=== PATIENT | female | born 1950 | race Hispanic/Latino ===

== ENCOUNTER → 2021-01-26 | Day surgery (SDC) | payer MEDICARE ==
[2021-01-24 15:31] LABS: BASOPHILS # (AUTO) 0.1 (0.0-0.1); BASOPHILS % 0.8 % (0.0-1.0); EOSINOPHILS # (AUTO) 0.1 (0.0-0.4); EOSINOPHILS % 0.9 % (0.0-6.0); HEMATOCRIT 37.8 % (34.2-44.1); LYMPHOCYTES # (AUTO) 3.6 (1.0-3.2); LYMPHOCYTES % 31.4 % (18.0-39.1); MEAN CORPUSCULAR HEMOGLOBIN 31.7 pg (28-32); MEAN CORPUSCULAR HGB CONC 31.7 g/dL (31-35); MONOCYTES # (AUTO) 0.7 (0.2-0.8); MONOCYTES % 5.9 % (4.4-11.3); NEUTROPHILS # (AUTO) 6.8 (2.1-6.9); NEUTROPHILS % 58.8 % (38.7-80.0); PLATELET COUNT 274 x10e3/uL (140-360); RED BLOOD COUNT 3.78 x10e6/uL (3.6-5.1); RED CELL DISTRIBUTION WIDTH 14.1 % (11.7-14.4)
[2021-01-24 15:50] LABS: ANION GAP 19.1 mmol/L (8-16); CALCIUM 9.2 mg/dL (8.4-10.2); CREATININE, SERUM 0.75 mg/dL (0.57-1.11); POTASSIUM 4.1 mmol/L (3.5-5.1)
[~2021-01-26] MED LIST: BUPIVACAINE 0.25% 30ML SDV ONE; CLINDAMYCIN 300MG 50 ML IV ONE; DEPAKOTE ER500 MG PO; KEPPRA750 MG PO; LEVOTHYROXINE50 MCG PO; LIDOCAINE 1% W/EPINEPHRINE 20 ML VIAL ONE; LIPITOR10 MG PO; METFORMIN HCL500 MG PO; PIPERACILLIN/TAZOBACTAM 3.375 GM VIAL ONE; SODIUM CHLORIDE 0.9% 50ML 50 ML ONE; SUGAMMADEX SODIUM 200 MG/2 ML VIAL IV ONE; TRAMADOL HCL 50 MG TAB ONE
[2021-01-26 13:00] VITALS: BP 125/72
== END | disposition home or self-care (01) ==
LOC: OR 07:55
PROVIDERS: ATTEND Urology
DX: T85.111A Breakdown (mechanical) of implanted electronic neurostimulator of peripheral nerve electrode (lead), initial encounter (principal); N39.46 Mixed incontinence; E11.9 Type 2 diabetes mellitus without complications; E78.00 Pure hypercholesterolemia, unspecified; E78.5 Hyperlipidemia, unspecified; K21.9 Gastro-esophageal reflux disease without esophagitis; M19.90 Unspecified osteoarthritis, unspecified site; R31.29 Other microscopic hematuria; N81.89 Other female genital prolapse; N81.6 Rectocele; R80.9 Proteinuria, unspecified; G40.909 Epilepsy, unspecified, not intractable, without status epilepticus; E03.9 Hypothyroidism, unspecified
CPT/HCPCS: 36415 ×2; 64581; 64590; 71046; 74420; 80048; 82948; 85025; 88300; 93005; 95972; C1776; C1787; J2543; L8679; U0002

== ENCOUNTER 2023-03-26 11:40 | Inpatient (IN) | payer OTHER, MEDICARE ==
[~2023-03-26] VITALS: Ht 165.1 cm; Wt 68.0 kg
[~2023-03-26 11:40] MED LIST changes: +ASPIRIN81 MG PO; -BUPIVACAINE 0.25% 30ML SDV ONE; -CLINDAMYCIN 300MG 50 ML IV ONE; -LIDOCAINE 1% W/EPINEPHRINE 20 ML VIAL ONE; +METOPROLOL SUCC25 MG PO; +OXYBUTYNIN CHLOR5 MG PO; -PIPERACILLIN/TAZOBACTAM 3.375 GM VIAL ONE; +ROPINIROLE HCL1 MG PO; -SODIUM CHLORIDE 0.9% 50ML 50 ML ONE; -SUGAMMADEX SODIUM 200 MG/2 ML VIAL IV ONE; -TRAMADOL HCL 50 MG TAB ONE
[2023-03-26] MEDS ORDERED: BUPIVACAINE 0.25% 30ML SDV ONE (12:49)
[2023-03-26] MEDS ORDERED: ROPIVACAINE 0.5% 5 MG/ML 30 ML SDV ONE ×2 (12:49)
[2023-03-26] MEDS ORDERED: LIDOCAINE 2%/ EPINEPHRINE 20ML MDV ONE (12:49)
[2023-03-26] MEDS ORDERED: EPINEPHRINE HCL 1:1000 1ML 1 MG/ML AMP ONE ×2 (12:49)
[2023-03-26 14:02] VITALS: BP 107/47; PULSE 63; RESP 19; TEMP 98.8; O2SAT 100
[2023-03-26 15:36] VITALS: BP 107/47; PULSE 63; RESP 19; TEMP 98.8; O2SAT 100
[2023-03-26 16:00] VITALS: BP 123/57; PULSE 49; RESP 19; TEMP 98.6; O2SAT 100
[2023-03-26] MEDS ORDERED: DEPAKOTE ER500 MG PO (16:16)
[2023-03-26] MEDS ORDERED: SENNA LAX8.6 MG PO (16:16)
[2023-03-26] MEDS ORDERED: HYDROCODON-ACE1 EA12 PO (16:16)
[2023-03-26] MEDS ORDERED: MIDODRINE HCL5 MG PO (17:03)
[2023-03-26] MEDS ORDERED: ONDANSETRON ODT4 MG PO (17:05)
[2023-03-26] MEDS ORDERED: CELECOXIB200 MG PO (17:05)
[2023-03-26] MEDS ORDERED: DOCUSATE SODIU100 MG PO (17:05)
[2023-03-26] MEDS ORDERED: KEPPRA750 MG PO (17:06)
[2023-03-26] MEDS ORDERED: MILK OF MA2400 MG/10 PO (17:07)
[2023-03-26] MEDS ORDERED: LIDOCAINE1 EACH EXT (17:10)
[2023-03-26] MEDS ORDERED: ASPIRIN EC650 MG PO (17:12)
[2023-03-26] MEDS ORDERED: MAGNESIUM HYDROXIDE 30 ML UDC PO PRN (19:45)
[2023-03-26] MEDS ORDERED: DEXTROSE 50% SYRINGE 50 ML IV PRN (19:45)
[2023-03-26 20:00] VITALS: BP 100/53; PULSE 62; RESP 18; TEMP 98.1; O2SAT 100
[2023-03-26] MEDS: ROPINIROLE HCL 1 MG TAB PO SCH (21:00)
[2023-03-26] MEDS: LEVETIRACETAM 500 MG TAB PO SCH (21:00)
[2023-03-26] MEDS: ATORVASTATIN 10 MG TAB PO SCH (21:01)
[2023-03-26] MEDS: HYDROCODONE/APAP 7.5MG-325MG 1 EA TAB PO PRN (21:01)
[2023-03-26 22:52] VITALS: BP 100/53; PULSE 62; RESP 18; TEMP 98.1; O2SAT 100
[2023-03-27] VITALS (8 sets, daily range): BP systolic 106–132; BP diastolic 30–58; PULSE 56–78; RESP 17–18; TEMP 97.9–98.7; O2SAT 99–100
[2023-03-27] MEDS: ONDANSETRON HCL 4 MG ORAL DISINTEGRATING TAB PO SCH ×5 (00:23→17:42)
[2023-03-27] MEDS ORDERED: LIDOCAINE 4% PATCH TP SCH (06:00)
[2023-03-27] MEDS: LEVOTHYROXINE SODIUM 50 MCG TAB PO SCH (08:36)
[2023-03-27] MEDS: OXYBUTYNIN CHLORIDE 5 MG TAB PO SCH ×2 (08:36→17:02)
[2023-03-27] MEDS: DOCUSATE SODIUM 100 MG CAP PO SCH ×2 (08:36→17:02)
[2023-03-27] MEDS: DEPAKOTE DELAYED-RELEASE TAB 500 MG PO SCH ×2 (08:38→17:01)
[2023-03-27] MEDS: CELECOXIB 200 MG CAP PO SCH ×2 (08:38→17:02)
[2023-03-27] MEDS: LEVETIRACETAM 500 MG TAB PO SCH ×2 (08:39→20:39)
[2023-03-27] MEDS: ASPIRIN 325 MG TAB PO SCH ×2 (08:39→17:00)
[2023-03-27] MEDS: MIDODRINE HCL 5 MG TABLET PO SCH ×3 (08:39→17:01)
[2023-03-27] MEDS: SENNOSIDES 8.6 MG TAB PO SCH ×2 (08:39→17:02)
[2023-03-27] MEDS: HYDROCODONE/APAP 7.5MG-325MG 1 EA TAB PO PRN ×2 (08:45→20:41)
[2023-03-27] MEDS: METOPROLOL SUCCINATE 25 MG TAB XL PO SCH (09:00)
[2023-03-27 09:55] LABS: BASOPHILS % 0.8 % (0.0-1.0); EOSINOPHILS # (AUTO) 0.1 (0.0-0.4); EOSINOPHILS % 1.9 % (0.0-6.0); HEMATOCRIT 31.8 % (34.2-44.1); HEMOGLOBIN 10.3 g/dL (12.0-16.0); LYMPHOCYTES # (AUTO) 1.6 (1.0-3.2); LYMPHOCYTES % 33.2 % (18.0-39.1); MEAN CORPUSCULAR HEMOGLOBIN 30.6 pg (28-32); MEAN CORPUSCULAR HGB CONC 32.4 g/dL (31-35); MEAN CORPUSCULAR VOLUME 94.4 fL (81-99); MONOCYTES # (AUTO) 0.6 (0.2-0.8); NEUTROPHILS # (AUTO) 2.4 (2.1-6.9); NEUTROPHILS % 50.3 % (38.7-80.0); PLATELET COUNT 235 x10e3/uL (140-360); RED BLOOD COUNT 3.37 x10e6/uL (3.6-5.1); RED CELL DISTRIBUTION WIDTH 15.7 % (11.7-14.4); WHITE BLOOD COUNT 4.85 x10e3/uL (4.8-10.8)
[2023-03-27 10:10] LABS: ANION GAP 11.8 mmol/L (8-16); CALCIUM 9.1 mg/dL (8.4-10.2); CREATININE, SERUM 0.78 mg/dL (0.57-1.11); POTASSIUM 3.8 mmol/L (3.5-5.1)
[2023-03-27 10:24] LABS: MAGNESIUM 2.1 MG/DL (1.3-2.1)
[2023-03-27 10:59] LABS: PHOSPHORUS 3.4 MG/DL (2.3-4.7)
[2023-03-27] MEDS: LIDOCAINE 4% PATCH TP SCH (11:37)
[2023-03-27] MEDS: ROPINIROLE HCL 1 MG TAB PO SCH (20:40)
[2023-03-27] MEDS: ATORVASTATIN 10 MG TAB PO SCH (20:40)
[2023-03-28] VITALS (7 sets, daily range): BP systolic 92–128; BP diastolic 41–59; PULSE 58–69; RESP 18; TEMP 98–98.7; O2SAT 98–100
[2023-03-28] MEDS: ONDANSETRON HCL 4 MG ORAL DISINTEGRATING TAB PO SCH ×4 (06:00→17:38)
[2023-03-28] MEDS: HYDROCODONE/APAP 7.5MG-325MG 1 EA TAB PO PRN ×2 (09:42→20:51)
[2023-03-28] MEDS: SENNOSIDES 8.6 MG TAB PO SCH ×2 (09:42→17:38)
[2023-03-28] MEDS: LIDOCAINE 4% PATCH TP SCH ×2 (09:42)
[2023-03-28] MEDS: OXYBUTYNIN CHLORIDE 5 MG TAB PO SCH ×2 (09:43→17:38)
[2023-03-28] MEDS: LEVETIRACETAM 500 MG TAB PO SCH ×2 (09:43→20:51)
[2023-03-28] MEDS: DEPAKOTE DELAYED-RELEASE TAB 500 MG PO SCH ×2 (09:43→17:38)
[2023-03-28] MEDS: METOPROLOL SUCCINATE 25 MG TAB XL PO SCH (09:43)
[2023-03-28] MEDS: LEVOTHYROXINE SODIUM 50 MCG TAB PO SCH (09:43)
[2023-03-28] MEDS: CELECOXIB 200 MG CAP PO SCH ×2 (09:44→17:38)
[2023-03-28] MEDS: DOCUSATE SODIUM 100 MG CAP PO SCH ×2 (09:44→17:38)
[2023-03-28] MEDS: MIDODRINE HCL 5 MG TABLET PO SCH ×3 (09:44→17:38)
[2023-03-28] MEDS: ENOXAPARIN SOD INJ 40 MG/0.4 ML SYR SC SCH (17:00)
[2023-03-28] MEDS: ROPINIROLE HCL 1 MG TAB PO SCH (20:50)
[2023-03-28] MEDS: ATORVASTATIN 10 MG TAB PO SCH (20:51)
[2023-03-29] VITALS (7 sets, daily range): BP systolic 104–144; BP diastolic 46–62; PULSE 53–71; RESP 18–20; TEMP 98.1–98.8; O2SAT 99–100
[2023-03-29] MEDS: HYDROCODONE/APAP 7.5MG-325MG 1 EA TAB PO PRN ×2 (04:34→21:07)
[2023-03-29] MEDS: ONDANSETRON HCL 4 MG ORAL DISINTEGRATING TAB PO SCH ×4 (05:54→16:55)
[2023-03-29] MEDS: MIDODRINE HCL 5 MG TABLET PO SCH ×3 (08:23→16:55)
[2023-03-29] MEDS: SENNOSIDES 8.6 MG TAB PO SCH ×2 (08:24→16:56)
[2023-03-29] MEDS: DOCUSATE SODIUM 100 MG CAP PO SCH ×2 (08:24→16:55)
[2023-03-29] MEDS: OXYBUTYNIN CHLORIDE 5 MG TAB PO SCH ×2 (08:24→16:55)
[2023-03-29] MEDS: LEVETIRACETAM 500 MG TAB PO SCH ×2 (08:24→20:58)
[2023-03-29] MEDS: CELECOXIB 200 MG CAP PO SCH ×2 (08:24→16:55)
[2023-03-29] MEDS: DEPAKOTE DELAYED-RELEASE TAB 500 MG PO SCH ×2 (08:24→16:55)
[2023-03-29] MEDS: LIDOCAINE 4% PATCH TP SCH ×2 (08:24→08:25)
[2023-03-29] MEDS: LEVOTHYROXINE SODIUM 50 MCG TAB PO SCH (08:24)
[2023-03-29] MEDS: METOPROLOL SUCCINATE 25 MG TAB XL PO SCH (08:25)
[2023-03-29] MEDS: ENOXAPARIN SOD INJ 40 MG/0.4 ML SYR SC SCH (16:56)
[2023-03-29] MEDS: ROPINIROLE HCL 1 MG TAB PO SCH (20:58)
[2023-03-29] MEDS: ATORVASTATIN 10 MG TAB PO SCH (20:58)
[2023-03-30] VITALS: BP 98/40; PULSE 59; RESP 20; TEMP 98.8; O2SAT 97
[2023-03-30] MEDS: ONDANSETRON HCL 4 MG ORAL DISINTEGRATING TAB PO SCH ×4 (00:31→17:25)
[2023-03-30 04:00] VITALS: BP_SYST 101; BP_SYST 117; BP_DIAS 49; BP_DIAS 71; PULSE 58; RESP 17; RESP 20; TEMP 98.1; O2SAT 94; O2SAT 99
[2023-03-30] MEDS: HYDROCODONE/APAP 7.5MG-325MG 1 EA TAB PO PRN (04:04)
[2023-03-30 06:00] LABS: BASOPHILS # (AUTO) 0.1 (0.0-0.1); BASOPHILS % 1.1 % (0.0-1.0); EOSINOPHILS # (AUTO) 0.1 (0.0-0.4); EOSINOPHILS % 1.8 % (0.0-6.0); HEMATOCRIT 32.5 % (34.2-44.1); HEMOGLOBIN 10.5 g/dL (12.0-16.0); LYMPHOCYTES # (AUTO) 2.7 (1.0-3.2); LYMPHOCYTES % 47.5 % (18.0-39.1); MEAN CORPUSCULAR HEMOGLOBIN 31.1 pg (28-32); MEAN CORPUSCULAR HGB CONC 32.3 g/dL (31-35); MEAN CORPUSCULAR VOLUME 96.2 fL (81-99); MONOCYTES # (AUTO) 0.7 (0.2-0.8); MONOCYTES % 12.5 % (4.4-11.3); NEUTROPHILS # (AUTO) 2.1 (2.1-6.9); NEUTROPHILS % 36.6 % (38.7-80.0); PLATELET COUNT 210 x10e3/uL (140-360); RED BLOOD COUNT 3.38 x10e6/uL (3.6-5.1); RED CELL DISTRIBUTION WIDTH 14.9 % (11.7-14.4); WHITE BLOOD COUNT 5.68 x10e3/uL (4.8-10.8)
[2023-03-30 06:29] LABS: ANION GAP 12.5 mmol/L (8-16); CREATININE, SERUM 0.92 mg/dL (0.57-1.11); POTASSIUM 4.5 mmol/L (3.5-5.1)
[2023-03-30 08:34] VITALS: BP 102/50; PULSE 65; RESP 18; TEMP 98; O2SAT 97
[2023-03-30 09:22] VITALS: BP 102/50; PULSE 65; RESP 18; TEMP 98; O2SAT 97
[2023-03-30] MEDS: LIDOCAINE 4% PATCH TP SCH ×2 (10:05)
[2023-03-30] MEDS: METOPROLOL SUCCINATE 25 MG TAB XL PO SCH (10:06)
[2023-03-30] MEDS: CELECOXIB 200 MG CAP PO SCH ×2 (10:06→17:24)
[2023-03-30] MEDS: LEVOTHYROXINE SODIUM 50 MCG TAB PO SCH (10:06)
[2023-03-30] MEDS: DOCUSATE SODIUM 100 MG CAP PO SCH ×2 (10:06→17:24)
[2023-03-30] MEDS: SENNOSIDES 8.6 MG TAB PO SCH ×2 (10:07→17:24)
[2023-03-30] MEDS: MIDODRINE HCL 5 MG TABLET PO SCH ×3 (10:07→17:25)
[2023-03-30] MEDS: OXYBUTYNIN CHLORIDE 5 MG TAB PO SCH ×2 (10:07→17:25)
[2023-03-30] MEDS: LEVETIRACETAM 500 MG TAB PO SCH ×2 (10:07→20:42)
[2023-03-30] MEDS: DEPAKOTE DELAYED-RELEASE TAB 500 MG PO SCH ×2 (10:07→17:24)
[2023-03-30 12:00] VITALS: BP 104/56; PULSE 70; RESP 18; TEMP 98.4; O2SAT 100
[2023-03-30] MEDS: ROPINIROLE HCL 1 MG TAB PO SCH (20:41)
[2023-03-30] MEDS: ATORVASTATIN 10 MG TAB PO SCH (20:42)
[2023-03-30 20:45] VITALS: BP 127/59; PULSE 60; RESP 18; TEMP 98.4; O2SAT 100
[2023-03-31] VITALS (7 sets, daily range): BP systolic 101–115; BP diastolic 41–67; PULSE 58–82; RESP 16–20; TEMP 97–98; O2SAT 99–100
[2023-03-31] MEDS: ONDANSETRON HCL 4 MG ORAL DISINTEGRATING TAB PO SCH ×5 (00:08→18:11)
[2023-03-31] MEDS: METOPROLOL SUCCINATE 25 MG TAB XL PO SCH (09:00)
[2023-03-31] MEDS: LEVOTHYROXINE SODIUM 50 MCG TAB PO SCH (09:00)
[2023-03-31] MEDS: SENNOSIDES 8.6 MG TAB PO SCH ×2 (09:00→16:27)
[2023-03-31] MEDS: CELECOXIB 200 MG CAP PO SCH ×2 (09:00→16:27)
[2023-03-31] MEDS: DOCUSATE SODIUM 100 MG CAP PO SCH ×2 (09:00→16:28)
[2023-03-31] MEDS: OXYBUTYNIN CHLORIDE 5 MG TAB PO SCH ×2 (09:00→16:28)
[2023-03-31] MEDS: LIDOCAINE 4% PATCH TP SCH ×2 (09:25)
[2023-03-31] MEDS: DEPAKOTE DELAYED-RELEASE TAB 500 MG PO SCH ×2 (09:25→16:28)
[2023-03-31] MEDS: LEVETIRACETAM 500 MG TAB PO SCH ×2 (09:25→20:24)
[2023-03-31] MEDS: MIDODRINE HCL 5 MG TABLET PO SCH ×3 (09:25→16:28)
[2023-03-31] MEDS ORDERED: CEFAZOLIN SODIUM 2 GM ONE (11:13)
[2023-03-31] MEDS ORDERED: TRANEXAMIC ACID 20 ML ONE (11:27)
[2023-03-31] MEDS ORDERED: Vancomycin IV 1,000 MG ONE (11:27)
[2023-03-31] MEDS ORDERED: SODIUM CHLORIDE 0.9% 500ML 500 ML ONE (11:27)
[2023-03-31] MEDS ORDERED: ROCURONIUM BROMIDE 10 MG/ML 5ML VIAL IV ONE (12:08)
[2023-03-31] MEDS ORDERED: NEOSTIGMINE 1 MG/ML 10ML VIAL ONE (12:08)
[2023-03-31] MEDS ORDERED: DEXAMETHASONE SOD PHOS INJ 4 MG/ML SDV ONE (12:08)
[2023-03-31] MEDS ORDERED: GLYCOPYRROLATE INJ 0.2 MG/ML VIAL ONE (12:08)
[2023-03-31] MEDS ORDERED: ONDANSETRON HCL INJ 2MG/ML 2ML 2 MG/ML VIAL ONE (12:08)
[2023-03-31] MEDS ORDERED: SEVOFLURANE INHAL SOLN 250 ML PEN BTL ONE (12:08)
[2023-03-31] MEDS ORDERED: PROPOFOL IV EMULSION 10 MG/ML 20 ML VIAL ONE (12:08)
[2023-03-31] MEDS ORDERED: LIDOCAINE HCL 2% LOCAL INJ 5 ML SDV VIAL INJ ONE (12:08)
[2023-03-31] MEDS ORDERED: FENTANYL CITRATE/PF 100MCG/2 ML INJ ONE ×2 (12:54→12:56)
[2023-03-31] MEDS ORDERED: MIDAZOLAM HCL 2 MG/2 ML VIAL ONE (12:54)
[2023-03-31] MEDS ORDERED: ONDANSETRON HCL INJ 2MG/ML 2ML 2 MG/ML VIAL IV PRN (13:30)
[2023-03-31] MEDS ORDERED: HYDROCODONE/APAP 7.5MG-325MG 1 EA TAB PO PRN (13:30)
[2023-03-31] MEDS ORDERED: ACETAMINOPHEN 650 MG SUPP PR PRN (13:30)
[2023-03-31] MEDS ORDERED: DOCUSATE SODIUM 100 MG CAP PO PRN (13:30)
[2023-03-31] MEDS ORDERED: DIPHENHYDRAMINE HCL INJ 50 MG/ML VIAL IV PRN (13:30)
[2023-03-31] MEDS ORDERED: ACETAMINOPHEN 1000 MG/100 ML IV PRN (15:00)
[2023-03-31] MEDS: HYDROCODONE/APAP 7.5MG-325MG 1 EA TAB PO PRN ×2 (16:15→20:27)
[2023-03-31] MEDS: SODIUM CHLORIDE 0.9% 1000ML 1,000 ML IV SCH (16:16)
[2023-03-31] MEDS: ASPIRIN 325 MG TAB PO SCH (16:28)
[2023-03-31] MEDS ORDERED: CELECOXIB 100 MG CAP PO SCH (17:00)
[2023-03-31] MEDS: ROPINIROLE HCL 1 MG TAB PO SCH (20:24)
[2023-03-31] MEDS: ATORVASTATIN 10 MG TAB PO SCH (20:25)
[2023-04-01] VITALS (8 sets, daily range): BP systolic 93–109; BP diastolic 42–74; PULSE 72–87; RESP 18–20; TEMP 97.6–98.3; O2SAT 100
[2023-04-01] MEDS: HYDROCODONE/APAP 7.5MG-325MG 1 EA TAB PO PRN ×3 (02:57→13:40)
[2023-04-01] MEDS: SODIUM CHLORIDE 0.9% 1000ML 1,000 ML IV SCH ×3 (02:57→22:36)
[2023-04-01 05:28] LABS: HEMATOCRIT 29.4 % (34.2-44.1); HEMOGLOBIN 9.5 g/dL (12.0-16.0)
[2023-04-01] MEDS: ONDANSETRON HCL 4 MG ORAL DISINTEGRATING TAB PO SCH ×5 (06:00→22:48)
[2023-04-01] MEDS: LIDOCAINE 4% PATCH TP SCH ×2 (08:14)
[2023-04-01] MEDS: MIDODRINE HCL 5 MG TABLET PO SCH ×3 (08:15→16:22)
[2023-04-01] MEDS: DOCUSATE SODIUM 100 MG CAP PO SCH ×2 (08:15→16:22)
[2023-04-01] MEDS: OXYBUTYNIN CHLORIDE 5 MG TAB PO SCH ×2 (08:16→16:22)
[2023-04-01] MEDS: CELECOXIB 200 MG CAP PO SCH ×2 (08:16→16:22)
[2023-04-01] MEDS: LEVOTHYROXINE SODIUM 50 MCG TAB PO SCH (08:16)
[2023-04-01] MEDS: SENNOSIDES 8.6 MG TAB PO SCH ×2 (08:16→16:23)
[2023-04-01] MEDS: ASPIRIN 325 MG TAB PO SCH ×2 (08:16→16:22)
[2023-04-01] MEDS: DEPAKOTE DELAYED-RELEASE TAB 500 MG PO SCH ×2 (08:17→16:23)
[2023-04-01] MEDS: METOPROLOL SUCCINATE 25 MG TAB XL PO SCH (08:17)
[2023-04-01] MEDS: LEVETIRACETAM 500 MG TAB PO SCH ×2 (08:18→22:37)
[2023-04-01] MEDS: HYDROCODONE/APAP 5MG-325MG TAB PO PRN (22:38)
[2023-04-01] MEDS: ROPINIROLE HCL 1 MG TAB PO SCH (22:38)
[2023-04-01] MEDS: ATORVASTATIN 10 MG TAB PO SCH (22:39)
[2023-04-02] VITALS: BP 99/42; PULSE 78; RESP 18; TEMP 97.4; O2SAT 99
[2023-04-02 04:00] VITALS: BP 98/27; PULSE 82; RESP 18; TEMP 98.2; O2SAT 100
[2023-04-02 05:29] LABS: HEMATOCRIT 25.7 % (34.2-44.1); HEMOGLOBIN 8.3 g/dL (12.0-16.0)
[2023-04-02] MEDS: SODIUM CHLORIDE 0.9% 1000ML 1,000 ML IV SCH (05:39)
[2023-04-02] MEDS: HYDROCODONE/APAP 5MG-325MG TAB PO PRN (05:40)
[2023-04-02] MEDS: ONDANSETRON HCL 4 MG ORAL DISINTEGRATING TAB PO SCH ×3 (06:00→11:27)
[2023-04-02] MEDS ORDERED: ACETAMINOPHEN 325 MG TAB PO PRN (07:15)
[2023-04-02] MEDS ORDERED: HYDROCODONE/APAP 7.5MG-325MG 1 EA TAB PO PRN (07:15)
[2023-04-02] MEDS ORDERED: CELECOXIB 200 MG CAP PO PRN (07:30)
[2023-04-02] MEDS ORDERED: ONDANSETRON HCL 4 MG ORAL DISINTEGRATING TAB PO PRN (07:30)
[2023-04-02 08:00] VITALS: BP 99/40; PULSE 87; RESP 18; TEMP 98.1; O2SAT 98
[2023-04-02] MEDS ORDERED: FERROUS SULFATE 325 MG TAB PO SCH (08:00)
[2023-04-02 09:07] VITALS: BP 99/40; PULSE 87; RESP 18; TEMP 98.1; O2SAT 98
[2023-04-02] MEDS: OXYBUTYNIN CHLORIDE 5 MG TAB PO SCH (09:36)
[2023-04-02] MEDS: MIDODRINE HCL 5 MG TABLET PO SCH ×2 (09:36→11:26)
[2023-04-02] MEDS: DEPAKOTE DELAYED-RELEASE TAB 500 MG PO SCH (09:36)
[2023-04-02] MEDS: DOCUSATE SODIUM 100 MG CAP PO SCH (09:36)
[2023-04-02] MEDS: ASPIRIN 325 MG TAB PO SCH (09:36)
[2023-04-02] MEDS: LEVETIRACETAM 500 MG TAB PO SCH (09:37)
[2023-04-02] MEDS: SENNOSIDES 8.6 MG TAB PO SCH (09:39)
[2023-04-02] MEDS: LEVOTHYROXINE SODIUM 50 MCG TAB PO SCH (09:39)
[2023-04-02] MEDS: METOPROLOL SUCCINATE 25 MG TAB XL PO SCH (09:39)
[2023-04-02] MEDS: LIDOCAINE 4% PATCH TP SCH ×2 (09:40)
[2023-04-02 10:45] VITALS: PULSE 84; RESP 18; O2SAT 97
[2023-04-02 12:00] VITALS: BP 96/55; PULSE 78; RESP 21; TEMP 98; O2SAT 100
== END 2023-04-02 14:12 | DRG 467 ==
LOC: MED/SURG 13:24
PROVIDERS: ADMIT Internal Medicine; ATTEND Internal Medicine
PROC: 0SPS0JZ Removal of Synthetic Substitute from Left Hip Joint, Femoral Surface, Open Approach (ICD-10-PCS; 2023-03-31)
PROC: 0QS704Z Reposition Left Upper Femur with Internal Fixation Device, Open Approach (ICD-10-PCS; 2023-03-31)
PROC: 0SRB039 Replacement of Left Hip Joint with Ceramic Synthetic Substitute, Cemented, Open Approach (ICD-10-PCS; principal; 2023-03-31 12:04)
DX: M84.452A Pathological fracture, left femur, initial encounter for fracture (principal); M97.02XA Periprosthetic fracture around internal prosthetic left hip joint, initial encounter; X58.XXXA Exposure to other specified factors, initial encounter; Y92.89 Other specified places as the place of occurrence of the external cause; Z96.643 Presence of artificial hip joint, bilateral; I10 Essential (primary) hypertension; E66.01 Morbid (severe) obesity due to excess calories; M19.90 Unspecified osteoarthritis, unspecified site; R26.9 Unspecified abnormalities of gait and mobility; Z68.25 Body mass index [BMI] 25.0-25.9, adult; Z20.822 Contact with and (suspected) exposure to COVID-19
CPT/HCPCS: 36415; 72170; 74176; 80048; 82948; 83735; 84100; 85014; 85018; 85025; 86850; 86900; 94799; 99252; C1776; J0171; J0690; J1100; J1650; J2001; J2250; J2405; J2710; J2795; J3370; J7030; J7040; Q0162; U0002